=== PATIENT | male | born 2000 | race Caucasian/White ===

== ENCOUNTER 2019-11-06 13:16 | Emergency (ER) | payer BC ==
[~2019-11-06 13:16] MED LIST: Sodium Chloride 0.9% 1,000 ML BAG ONE
[2019-11-06] MEDS ORDERED: Ondansetron ODT 4 MG TAB ONE (13:55)
[2019-11-06 14:51] LABS: #Basophils 0.1 thou/uL (0.0-0.2); #Eosinphils 0.4 thou/uL (0.0-0.7); #Lymphocytes 2.1 thou/uL (1.20-3.40); #Monocytes 0.5 thou/uL (0.11-0.59); #Neutrophils 4.7 thou/uL (1.40-6.50); %Basophils 1.2 % (0.0-1.0); %Eosinophils 5.7 % (0.0-10.0); %Lymphocytes 27.1 % (28.0-48.0); %Monocytes 5.8 % (0.0-4.0); %Neutrophils 60.3 % (31.0-61.0); Hemoglobin 17.6 g/dL (14.0-18.0); Mean Corpuscular HGB CONC 32.4 g/dL (32.0-36.0); Mean Corpuscular Hemoglobin 28.6 pg (25.0-35.0); Mean Corpuscular Volume 88.1 fL (78.0-98.0); Mean Platelet Volume 8.4 fL (7.4-10.4); Platelet Count 248 thou/uL (130-400); RBC Distribution Width 11.5 % (11.5-14.5); Red Blood Cell (RBC) Count 6.17 mill/uL (4.00-5.20); White Blood Cell (WBC) Count 7.8 thou/uL (4.8-10.8)
[2019-11-06 15:04] LABS: ALT (SGPT) 29 U/L (8-55); AST (SGOT) 16 U/L (10-45); Albumin 4.6 g/dL (3.5-5.0); Alkaline Phosphatase 65 U/L (50-130); Anion Gap 16 mmol/L (10-20); BUN (Urea Nitrogen) 18 mg/dL (8.4-21.0); Bilirubin, Total 2.5 mg/dL (0.2-1.2); Calc. Creatinine Clearance 0 mL/min (70-130); Calcium 9.8 mg/dL (7.8-10.44); Carbon Dioxide 26 mmol/L (22-29); Chloride 102 mmol/L (98-107); Estimated GFR-MDRD 89; Globulin 3.1 g/dL (2.4-3.5); Glucose 89 mg/dL (70-105); Lipase 14 U/L (8-78); Potassium 4.3 mmol/L (3.5-5.1); Protein, Total 7.7 g/dL (6.0-8.3); Sodium 140 mmol/L (136-145)
== END 2019-11-06 15:40 | disposition home or self-care (01) ==
LOC: MADERS 13:16
DX: R11.2 Nausea with vomiting, unspecified (principal); J45.909 Unspecified asthma, uncomplicated; Z79.899 Other long term (current) drug therapy
CPT/HCPCS: 80053; 83690; 85025; 96360; J7050; Q0162

== ENCOUNTER 2020-08-03 13:49 | Emergency (ER) | payer BC | END 2020-08-03 14:13 | disposition home or self-care (01) | LOC: MADERS 13:49 | DX: S61.011A Laceration without foreign body of right thumb without damage to nail, initial encounter (principal); J45.909 Unspecified asthma, uncomplicated; Z87.891 Personal history of nicotine dependence; W45.8XXA Other foreign body or object entering through skin, initial encounter | CPT/HCPCS: 12001 ==